=== PATIENT | female | born 1945 | race Caucasian/White ===

== ENCOUNTER 2018-08-17 08:58 | Outpatient (CLI) | payer MEDICARE ==
[2018-08-17 14:31] LABS: BASOPHILS % (AUTO) 0.8 %; EOSINOPHILS # (AUTO) 0.1 10^3/uL (0.0-0.7); EOSINOPHILS % (AUTO) 2.1 %; HGB - HEMOGLOBIN 13.1 g/dL (12.0-16.0); LYMPHOCYTES # (AUTO) 1.7 10^3/uL (1.5-3.5); LYMPHOCYTES % (AUTO) 35.4 %; MEAN CORPUSCULAR HEMOGLOBIN 32.5 pg (27.0-31.0); MEAN CORPUSCULAR HGB CONC 34.2 g/dL (32.0-36.0); MEAN CORPUSCULAR VOLUME 95.2 fL (81.0-99.0); MEAN PLATELET VOLUME 8.6 fL (7.9-10.8); MONOCYTES # (AUTO) 0.4 10^3/uL (0.0-1.0); MONOCYTES % (AUTO) 7.7 %; NEUTROPHILS # (AUTO) 2.6 10^3/uL (1.5-6.6); PLT - PLATELET COUNT 280 10^3/uL (130-450); RED BLOOD COUNT 4.04 10^6/uL (4.20-5.40); RED CELL DISTRIBUTION WIDTH 12.7 % (12.0-15.0); WHITE BLOOD COUNT 4.9 x10^3/uL (4.8-10.8)
[2018-08-17 14:59] LABS: ALBUMIN 3.9 g/dL (3.2-5.5); ALBUMIN/GLOBULIN RATIO 1.6 (1.0-2.2); ALKALINE PHOSPHATASE 66 IU/L (42-121); ALT ALANINE AMINOTRANSFERASE 41 IU/L (10-60); AST ASPARTATE AMINOTRANSFERASE 36 IU/L (10-42); BUN - BLOOD UREA NITROGEN 13 mg/dL (6-20); CALCIUM 9.2 mg/dL (8.5-10.3); CARBON DIOXIDE - CO2 25 mmol/L (21-32); CHLORIDE 105 mmol/L (101-111); CHOL/HDL RATIO 1.9 (<4.4); CHOLESTEROL 177 mg/dL; CREATININE 0.8 mg/dL (0.4-1.0); GFR - MDRD 71 (>89); GLUCOSE 99 mg/dL (70-100); HDL CHOLESTEROL 94 mg/dL; SODIUM 137 mmol/L (135-145); TOTAL PROTEIN 6.3 g/dL (6.7-8.2)
[2018-08-17 15:35] LABS: LDL CHOLESTEROL,DIRECT 71 mg/dL; LDLD/HDL RATIO 0.8 (<4.4)
== END 2018-08-17 08:59 | disposition home or self-care (01) ==
LOC: LAB.WCP 08:58
PROVIDERS: ATTEND Family Medicine
DX: D72.819 Decreased white blood cell count, unspecified (principal); I10 Essential (primary) hypertension; Z79.899 Other long term (current) drug therapy
CPT/HCPCS: 36415; 80053; 80061; 83721; 84443; 85025

== ENCOUNTER 2019-08-04 09:55 | Outpatient (CLI) | payer MEDICARE, OTHER ==
[2019-08-04 13:23] LABS: BASOPHILS % (AUTO) 0.8 %; EOSINOPHILS # (AUTO) 0.1 10^3/uL (0.0-0.7); EOSINOPHILS % (AUTO) 2.5 %; HGB - HEMOGLOBIN 13.8 g/dL (12.0-16.0); LYMPHOCYTES # (AUTO) 2.1 10^3/uL (1.5-3.5); LYMPHOCYTES % (AUTO) 42.1 %; MEAN CORPUSCULAR HEMOGLOBIN 31.5 pg (27.0-31.0); MEAN CORPUSCULAR HGB CONC 32.2 g/dL (32.0-36.0); MEAN CORPUSCULAR VOLUME 97.9 fL (81.0-99.0); MONOCYTES # (AUTO) 0.4 10^3/uL (0.0-1.0); MONOCYTES % (AUTO) 7.6 %; NEUTROPHILS # (AUTO) 2.3 10^3/uL (1.5-6.6); NEUTROPHILS % (AUTO) 46.8 %; PLT - PLATELET COUNT 329 10^3/uL (130-450); RED BLOOD COUNT 4.38 10^6/uL (4.20-5.40); RED CELL DISTRIBUTION WIDTH 12.6 % (12.0-15.0); WHITE BLOOD COUNT 4.9 x10^3/uL (4.8-10.8)
[2019-08-04 13:28] LABS: ALBUMIN 3.9 g/dL (3.2-5.5); ALBUMIN/GLOBULIN RATIO 1.2 (1.0-2.2); ALKALINE PHOSPHATASE 73 IU/L (42-121); ALT ALANINE AMINOTRANSFERASE 76 IU/L (10-60); AST ASPARTATE AMINOTRANSFERASE 64 IU/L (10-42); BILIRUBIN,TOTAL 0.7 mg/dL (0.2-1.0); BUN - BLOOD UREA NITROGEN 16 mg/dL (6-20); CALCIUM 9.7 mg/dL (8.5-10.3); CARBON DIOXIDE - CO2 29 mmol/L (21-32); CHLORIDE 108 mmol/L (101-111); CHOLESTEROL 199 mg/dL; CREATININE 0.8 mg/dL (0.4-1.0); GFR - MDRD 70 (>89); GLUCOSE 94 mg/dL (70-100); HDL CHOLESTEROL 102 mg/dL; SODIUM 141 mmol/L (135-145); TOTAL PROTEIN 7.1 g/dL (6.7-8.2)
[2019-08-05 12:57] LABS: HEPATITIS C ANTIBODY NON-REACTIVE (NON-REACTIVE)
== END 2019-08-04 23:59 | disposition home or self-care (01) ==
LOC: LAB.WCP 09:55
PROVIDERS: ATTEND Physician Assistant Medical
DX: I10 Essential (primary) hypertension (principal); Z11.59 Encounter for screening for other viral diseases
CPT/HCPCS: 36415; 80053; 80061; 83721; 85025; 86803

== ENCOUNTER 2020-12-18 09:14 | Outpatient (CLI) | payer MEDICARE, OTHER ==
[2020-12-18 09:50] LABS: BASOPHILS % (AUTO) 0.8 %; EOSINOPHILS # (AUTO) 0.1 10^3/uL (0.0-0.7); EOSINOPHILS % (AUTO) 1.7 %; HCT - HEMATOCRIT 45.8 % (37.0-47.0); HGB - HEMOGLOBIN 14.5 g/dL (12.0-16.0); LYMPHOCYTES # (AUTO) 1.9 10^3/uL (1.5-3.5); LYMPHOCYTES % (AUTO) 38.5 %; MEAN CORPUSCULAR HEMOGLOBIN 31.9 pg (27.0-31.0); MEAN CORPUSCULAR HGB CONC 31.7 g/dL (32.0-36.0); MEAN CORPUSCULAR VOLUME 100.9 fL (81.0-99.0); MEAN PLATELET VOLUME 9.6 fL (7.9-10.8); MONOCYTES # (AUTO) 0.3 10^3/uL (0.0-1.0); MONOCYTES % (AUTO) 6.9 %; NEUTROPHILS # (AUTO) 2.5 10^3/uL (1.5-6.6); NEUTROPHILS % (AUTO) 51.9 %; PLT - PLATELET COUNT 270 10^3/uL (130-450); RED BLOOD COUNT 4.54 10^6/uL (4.20-5.40); RED CELL DISTRIBUTION WIDTH 11.9 % (12.0-15.0); WHITE BLOOD COUNT 4.8 x10^3/uL (4.8-10.8)
[2020-12-18 10:08] LABS: ALBUMIN 4.1 g/dL (3.2-5.5); ALBUMIN/GLOBULIN RATIO 1.3 (1.0-2.2); ALKALINE PHOSPHATASE 84 IU/L (42-121); ALT ALANINE AMINOTRANSFERASE 117 IU/L (10-60); AST ASPARTATE AMINOTRANSFERASE 85 IU/L (10-42); BILIRUBIN,TOTAL 0.9 mg/dL (0.2-1.0); BUN - BLOOD UREA NITROGEN 17 mg/dL (6-20); CALCIUM 9.9 mg/dL (8.5-10.3); CARBON DIOXIDE - CO2 22 mmol/L (21-32); CHLORIDE 105 mmol/L (101-111); CHOL/HDL RATIO 2.3 (<4.4); CHOLESTEROL 210 mg/dL; CREATININE 0.9 mg/dL (0.4-1.0); GFR - MDRD 61 (>89); GLUCOSE 92 mg/dL (70-100); HDL CHOLESTEROL 92 mg/dL; LDL CHOLESTEROL,CALCULATED 110 mg/dL; LDL/HDL RATIO 1.2 (<4.4); POTASSIUM 4.4 mmol/L (3.5-5.0); SODIUM 135 mmol/L (135-145); TOTAL PROTEIN 7.3 g/dL (6.7-8.2); TRIGLYCERIDES 41 mg/dL; VLDL CHOLESTEROL 8 mg/dL
[2020-12-18 10:17] LABS: THYROID STIMULATING HORMONE 2.25 uIU/mL (0.34-5.60)
== END 2020-12-18 09:15 | disposition home or self-care (01) ==
LOC: LAB 09:14
PROVIDERS: ATTEND Physician Assistant Medical
DX: I10 Essential (primary) hypertension (principal); E66.9 Obesity, unspecified; J45.40 Moderate persistent asthma, uncomplicated; G47.30 Sleep apnea, unspecified
CPT/HCPCS: 36415; 80053; 80061; 83721; 84443; 85025

== ENCOUNTER 2020-12-21 10:21 | Outpatient (CLI) | payer MEDICARE, OTHER ==
[2020-12-22 13:52] LABS: HEPATITIS B SURFACE ANTIGEN NON-REACTIVE (NON-REACTIVE); HEPATITIS C ANTIBODY NON-REACTIVE (NON-REACTIVE)
== END 2020-12-21 23:59 | disposition home or self-care (01) ==
LOC: LAB.WCP 10:21
PROVIDERS: ATTEND Physician Assistant Medical
DX: R74.8 Abnormal levels of other serum enzymes (principal)
CPT/HCPCS: 36415; 86317; 86704; 86709; 86803; 87340

== ENCOUNTER 2021-01-11 08:16 | Outpatient (CLI) | payer MEDICARE, OTHER ==
--- NOTE | 2021-01-11 12:00 | Ultrasound Report ---
PROCEDURE: Abdomen Limited INDICATIONS: ELEVATED LIVER ENZYMES TECHNIQUE: Real-time focused scanning was performed of the abdomen, with image documentation. COMPARISON: None FINDINGS: The liver is mildly enlarged at 18.8 cm craniocaudad, with increased echotexture consisten t with diffuse fatty infiltration. The quality of visualization of the gallbladder is limited by body habitus and bowel gas but no definite acute disease is found involving the gallbladder. Common bile duct measures 3.0 mm, normal. Pancreas visualized appears normal but is very limited in quality of vi sualization. Right kidney shows mild hydronephrosis which persisted after voiding. No definite focus of obstruction is seen but the exact etiology of this finding is indeterminate. IMPRESSION: Hyperechoic liver echotexture consistent with prominent fatty infiltration. No focal liver lesions se en nor is there biliary distention. Mild hydronephrosis right kidney, etiology and chronicity uncertain. CT KUB may be warranted for furt her assessment. Reviewed by: Barrett Soto MD on 01/11/2021 11:59 AM PDT Approved by: Barrett Soto MD on 01/11/2021 11:59 AM PDT Station ID: [id number]
== END 2021-01-11 08:17 | disposition home or self-care (01) ==
LOC: DI 08:16
PROVIDERS: ATTEND Physician Assistant Medical
DX: N13.30 Unspecified hydronephrosis (principal)

== ENCOUNTER 2021-01-23 08:00 | Outpatient (CLI) | payer MEDICARE, OTHER ==
[2021-01-23 21:20] LABS: BACTERIAL VAGINOSIS DNA POSITIVE (NEGATIVE); CANDIDA GLABRATA DNA NEGATIVE (NEGATIVE); CANDIDA GROUP DNA POSITIVE (NEGATIVE); CANDIDA KRUSEI DNA NEGATIVE (NEGATIVE); TRICHOMONAS VAGINALIS DNA NEGATIVE (NEGATIVE)
== END 2021-01-23 23:59 | disposition home or self-care (01) ==
LOC: LAB.WC 08:00
PROVIDERS: ATTEND Obstetrics & Gynecology
DX: N89.8 Other specified noninflammatory disorders of vagina (principal)
CPT/HCPCS: 87661; 87801

== ENCOUNTER 2021-01-23 09:04 | Outpatient (CLI) | payer MEDICARE, OTHER ==
--- NOTE | 2021-01-23 10:36 | CT Report ---
PROCEDURE: Abdomen/Pelvis WO INDICATIONS: HYDRONEPHROSIS TECHNIQUE: Noncontrast 5 mm thick sections acquired from the diaphragms to the symphysis. 5 mm coronal and sagi ttal reformats were then performed. For radiation dose reduction, the following was used: automated exposure control, adjustment of mA and/or kV according to patient size. COMPARISON: Renal ultrasound dated 01/11/2021. FINDINGS: Image quality: Excellent. ABDOMEN: Lung bases: Lung bases are clear. Heart size is normal. Solid organs: Liver and spleen are normal in size. Gallbladder is unremarkable. Pancreas is normal in contours. No adrenal nodules. On the ultrasound report, there is mention of mild right hydroneph rosis of uncertain etiology. There is no hydronephrosis suspected. Instead, there are numerous bilate ral peripelvic renal cysts. No renal stones. Peritoneum and bowel: Unenhanced bowel loops demonstrate normal wall thickness and caliber. No free fluid or air. Nodes and vessels: No retroperitoneal or mesenteric adenopathy by size criteria. Aorta and inferior vena cava are normal in caliber. Miscellaneous: No ventral hernias. PELVIS: Genitourinary: Bladder wall thickness is normal. Bladder is decompressed. Miscellaneous: No inguinal hernias or adenopathy. Bones: No suspicious bony lesions. No vertebral body compression fractures. Lumbar degenerative ch isaias with canal stenosis at L4-L5. IMPRESSION: 1. Multiple bilateral renal peripelvic cysts. No hydronephrosis identified. 2. No evidence of acute abdominal process. 3. Lumbar degenerative change with canal stenosis at L4-L5. Reviewed by: Tanner Foster MD on 01/23/2021 10:34 AM PDT Approved by: Tanner Foster MD on 01/23/2021 10:34 AM PDT Station ID: [id number]
== END 2021-01-23 09:05 | disposition home or self-care (01) ==
LOC: DI 09:04
PROVIDERS: ATTEND Physician Assistant Medical
DX: N28.1 Cyst of kidney, acquired (principal); M47.816 Spondylosis without myelopathy or radiculopathy, lumbar region; M51.06 Intervertebral disc disorders with myelopathy, lumbar region; M51.16 Intervertebral disc disorders with radiculopathy, lumbar region; M48.061 Spinal stenosis, lumbar region without neurogenic claudication; N89.8 Other specified noninflammatory disorders of vagina
CPT/HCPCS: 87661; 87801

== ENCOUNTER 2021-04-05 17:41 | Outpatient (CLI) | payer MEDICARE, OTHER ==
--- NOTE | 2021-04-07 17:42 | Ultrasound Report ---
PROCEDURE: Pelvic w/Transvaginal INDICATIONS: CERVICAL POLYP TECHNIQUE: Real-time scanning was performed of the pelvic organs, with image documentation. Additional endovagi nal scanning was necessary due to incomplete visualization of the adnexal and endometrial structures by transabdominal scanning. COMPARISON: Pelvic ultrasound, 05/15/2007. FINDINGS: No pathologic free abdominal or pelvic fluid. Uterus: Uterus is anteverted measuring 6.1 x 1.9 x 3.3 cm with an estimated volume of 19.8 cc The e ndometrium measures 5.3 mm in combined thickness. There are nabothian cysts. No polyps seen. Ovaries: Ovaries are not identified on ultrasound. IMPRESSION: 1. Limited examination due to the patient's body habitus. 2. Endometrium is mildly thickened measuring 5.3 mm for a postmenopausal woman. Recommend gynecologic al follow-up. 3. There are nabothian cysts in cervix. No cervical polyp is identified on this ultrasound. 4. Ovaries are not visualized. Reviewed by: Dixie Langston MD on 04/07/2021 5:41 PM PDT Approved by: Dixie Langston MD on 04/07/2021 5:41 PM PDT Station ID: [id number]
== END 2021-04-05 17:42 | disposition home or self-care (01) ==
LOC: DI 17:41
PROVIDERS: ATTEND Obstetrics & Gynecology
DX: R93.89 Abnormal findings on diagnostic imaging of other specified body structures (principal); N88.8 Other specified noninflammatory disorders of cervix uteri

== ENCOUNTER 2021-05-15 10:06 | Outpatient (CLI) | payer MEDICARE, OTHER ==
--- NOTE | 2021-05-15 10:39 | SLEEP CARE CONSULTATION ---
Information from patient questionnaire entered by Kelly Alvarado. I have reviewed and concur with the information entered by Kelly Alvarado. This document represents the service I personally performed and the decisions made by , Aileen Pineda ARNP. History of Present Illness Service Date and Time: 05/15/2021 1006 Previous diagnosis: Severe, Obstructive Sleep Apnea-Hypopnea Syndrome AHI: 57.4 (in 2017) Reason for follow up: annual (last seen 03/2019) Equipment type: CPAP Equipment obtained from: [facility] (getting supplies as needed) Mask style: Nasal Mask brand: Respironics (Dreamwear) Backup mask available: Yes (old mask) Last cushion change: 1 month Prior sleep studies: Yes Year and Where: 2017 - [facility] HPI additional information: BRIT LYNN was diagnosed to have severe, AHI 57.4, obstructive sleep apnea-hypopnea syndrome and returned today for CPAP therapy annual follow-up. CPAP Compliance Data - Data Reviewed with Patient Average duration of nightly device use: 8 hrs 38 mins Compliance rate %: 77.2 Current pressure setting (cmH2O): 8-13 Humidity settin Heated hose settin Average residual AHI: 1.5 Average large leak: 56 mins 59 secs Subjective Patient concerns: denies: aerophagia, mask discomfort, air blowing in eyes, mask leak noise, condensation in mask/hose, nasal congestion, dry mouth, nose, throat, epistaxis, other Observed to snore while using device: No Current pressure setting perceived as: comfortable On therapy, patient: reports: sleeping better, awakening more refreshed, being more awake and alert during the day, more rested overall. denies: drowsiness while driving Current Pinch Sleepiness Scale score: 2 Allergies and Home Medications Home medication list reviewed: Yes (no changes) Review of Systems Review of systems same as previous: Yes (no changes) Physical Exam Heart Rate: 56 O2 Saturation: 97 Height: 5 ft 4 in Weight: 258 lb Body Mass Index: 44.2 BMI Classification: Morbidly Obese Impression and Plan 1. Obstructive Sleep Apnea-Hypopnea Syndrome, severe, with good treatment compliance and good apnea control. On CPAP therapy, the patient has better sleep quality and is more rested overall. Patient is very satisfied with current treatment and pressure setting is comfortable. Patient was encouraged to try to lose weight. Currently patients BMI is 44.2. Obesity increases the risk of ap juan carlos, CPAP pressure requirements and overall health risks especially cardiovascular and diabetes. Thus patient is advised to lose weight. Patient's apnea severity and rationale for treatment to reduce apnea, improve sleep quality and reduce cardiovascular and cerebrovascular events was reviewed. * Continue auto CPAP pressure at 8-13 cmH2O * Notify me if snoring with mask or feeling that the pressure is too much or too little * Attempt to lose weight * Call this office if any problems using CPAP * Return for follow up in 1 year, or sooner if concerns arise Counseling Topics: Spare mask, Weight loss health impact Visit Type: In Office Time Spent with Patient (minutes): 18 Provider Statement: I spent 100% of the Face to Face Visit with the patient with greater than 50% spent counseling the patient and coordination of care.
== END 2021-05-15 10:07 | disposition home or self-care (01) ==
LOC: SC 10:06
PROVIDERS: ATTEND Nurse Practitioner Family
DX: G47.33 Obstructive sleep apnea (adult) (pediatric) (principal); E66.01 Morbid (severe) obesity due to excess calories; Z68.41 Body mass index [BMI] 40.0-44.9, adult
CPT/HCPCS: 99212; G0463

== ENCOUNTER 2021-05-22 14:38 | Outpatient (CLI) | payer MEDICARE, OTHER ==
[2021-05-22 14:55] LABS: BASOPHILS # (AUTO) 0.1 10^3/uL (0.0-0.1); BASOPHILS % (AUTO) 0.8 %; EOSINOPHILS # (AUTO) 0.1 10^3/uL (0.0-0.7); EOSINOPHILS % (AUTO) 1.9 %; HCT - HEMATOCRIT 41.8 % (37.0-47.0); HGB - HEMOGLOBIN 13.4 g/dL (12.0-16.0); LYMPHOCYTES # (AUTO) 2.2 10^3/uL (1.5-3.5); LYMPHOCYTES % (AUTO) 34.3 %; MEAN CORPUSCULAR HEMOGLOBIN 32.1 pg (27.0-31.0); MEAN CORPUSCULAR HGB CONC 32.1 g/dL (32.0-36.0); MEAN PLATELET VOLUME 9.7 fL (7.9-10.8); MONOCYTES # (AUTO) 0.6 10^3/uL (0.0-1.0); MONOCYTES % (AUTO) 8.7 %; NEUTROPHILS # (AUTO) 3.4 10^3/uL (1.5-6.6); NEUTROPHILS % (AUTO) 54.1 %; PLT - PLATELET COUNT 270 10^3/uL (130-450); RED BLOOD COUNT 4.18 10^6/uL (4.20-5.40); RED CELL DISTRIBUTION WIDTH 12.3 % (12.0-15.0); WHITE BLOOD COUNT 6.3 x10^3/uL (4.8-10.8)
[2021-05-22 15:01] LABS: CALCIUM 9.8 mg/dL (8.5-10.3); CREATININE 0.9 mg/dL (0.4-1.0); POTASSIUM 4.5 mmol/L (3.5-5.0)
== END 2021-05-22 14:39 | disposition home or self-care (01) ==
LOC: LAB 14:38
PROVIDERS: ATTEND Obstetrics & Gynecology
DX: Z01.818 Encounter for other preprocedural examination (principal); R93.89 Abnormal findings on diagnostic imaging of other specified body structures
CPT/HCPCS: 36415; 80048; 85025; 93005

== ENCOUNTER 2021-05-23 06:16 | Day surgery (SDC) | payer MEDICARE, OTHER ==
[~2021-05-23 06:16] MED LIST: ACETAMINOPHEN 1,000 MG/100 ML 100 ML IV ONE; CEFAZOLIN SODIUM IN 0.9 % NACL 2 GM/100 ML BAG IV ONE; CELECOXIB 100 MG CAPSULE PO ONE; GABAPENTIN 400 MG CAPSULE ONE
[2021-05-23] MEDS ORDERED: LACTATED RINGERS 1,000 ML IV ONE ×3 (06:27→09:51)
[2021-05-23] MEDS ORDERED: fentaNYL 100 MCG/2 ML VIAL ONE (06:58)
[2021-05-23] MEDS ORDERED: MIDAZOLAM 2 MG/2 ML VIAL ONE (06:58)
[2021-05-23] MEDS ORDERED: LIDOCAINE-MPF 2% 5 ML VIAL ONE (06:59)
[2021-05-23] MEDS ORDERED: PROPOFOL 200 MG/20 ML VIAL IVP ONE (06:59)
[2021-05-23] MEDS ORDERED: HYDROmorphone 0.5 MG/0.5 ML SYRINGE IVP PRN (07:19)
[2021-05-23] MEDS ORDERED: ATROPINE ABBOJECT 1 MG/10 ML SYRINGE IVP PRN (07:19)
[2021-05-23] MEDS ORDERED: ePHEDrine 50 MG/ML VIAL IVP PRN (07:19)
[2021-05-23] MEDS ORDERED: MORPHINE 2 MG/ML CARPUJECT IVP PRN (07:19)
[2021-05-23] MEDS ORDERED: METOCLOPRAMIDE 10 MG/2 ML VIAL IVP PRN (07:19)
[2021-05-23] MEDS ORDERED: fentaNYL 100 MCG/2 ML VIAL IVP PRN (07:19)
[2021-05-23] MEDS ORDERED: NALOXONE 0.4 MG/ML VIAL IVP PRN (07:19)
--- NOTE | 2021-05-23 07:19 | ANESTHESIA ---
Pre-Anesthesia VS, & Labs - Diagnosis thickened endometrium - Procedure hysteroscopy, D&C Vital Signs: Temp Pulse Resp BP Pulse Ox 36.2 C L 66 14 120/78 99 05/23/21 06:31 05/23/21 06:31 05/23/21 06:31 05/23/21 06:31 05/23/21 06:31 Height: 5 ft 4 in Weight (kg): 118 kg Body Mass Index: 44.6 BMI Classification: Morbidly Obese - NPO >8 hours - Is Patient ?: No - Lab Results Current Lab Results: Laboratory Tests 05/23/21 06:51: POC Whole Bld Glucose 99 Home Medications and Allergies Home Medications: Ambulatory Orders Albuterol Sulfate [Proair Hfa Inhaler] 1 - 2 puffs INH Q4H PRN 05/22/21 Fluticasone/Salmeterol [Advair 100-50 Diskus] 1 each IH DAILY 05/22/21 Montelukast Sodium 10 mg PO DAILY 05/22/21 lisinopriL [Zestril] 5 mg PO DAILY 05/22/21 Albuterol Sulfate [Proair Hfa Inhaler] 1 - 2 puffs INH Q4H PRN 05/22/21 Fluticasone/Salmeterol [Advair 100-50 Diskus] 1 each IH DAILY 05/22/21 Montelukast Sodium 10 mg PO DAILY 05/22/21 lisinopriL [Zestril] 5 mg PO DAILY 05/22/21 Allergies/Adverse Reactions: Allergies Allergy/AdvReac Type Severity Reaction Status Date / Time No Known Drug Allergies Allergy Verified 05/22/21 10:00 Anes History & Medical History - Anesthetic History Anesthesia Complications: reports: No previous complications Family history of Anesthesia Complications: Denies Family history of Malignant Hyperthermia: Denies - Medical History Cardiovascular: reports: Hypertension Pulmonary: reports: Asthma, Sleep apnea, CPAP use Gastrointestinal: reports: None Urinary: reports: None Musculoskeletal: reports: Osteoarthritis Endocrine/Autoimmune: reports: None Skin: reports: None - Surgical History General: reports: Colonoscopy Eyes Ears Nose Throat (EENT): reports: Other Gynecologic: reports: Tubal ligation Orthopedic: reports: Hip replacement Exam General: Alert, Oriented x3, Cooperative Dental: WNL Mouth Openin Fingerbreadth Neck Mobility: Normal Mallampati classification: II Thyromental Distance: 4-6 cm Respiratory: Lungs clear Cardiovascular: Regular rate Plan Anesthesia Type: General Consent for Procedure(s) Verified and Reviewed: Yes Code Status: Attempt Resuscitation ASA classification: 3-Severe systemic disease Is this case an emergency?: No
[2021-05-23] MEDS ORDERED: BUPIVACAINE 0.5%-EPI 1:200000 PF 30 ML VIAL ONE (07:21)
[2021-05-23] MEDS ORDERED: SILVER NITRATE APPLICATOR TOP ONE (07:22)
[2021-05-23] MEDS ORDERED: DEXAMETHASONE 4 MG/ML VIAL ONE (07:58)
[2021-05-23] MEDS ORDERED: VASOPRESSIN 20 UNIT/ML VIAL ONE (07:59)
[2021-05-23] MEDS ORDERED: LACTATED RINGERS 1,000 ML IV SCH (08:00)
[2021-05-23] MEDS ORDERED: BUPIVACAINE 0.5%-EPI 1:200000 PF 30 ML VIAL SUBQ ONE (08:16)
[2021-05-23] MEDS ORDERED: GLYCOPYRROLATE 1 MG/5 ML VIAL ONE (08:22)
--- NOTE | 2021-05-23 08:55 | OPERATIVE REPORT ---
Operative Report - General Procedure Date: 05/23/21 Planned Procedure: Hysteroscopy, Dilation and curettage, cervical polypectomy Pre-Op Diagnosis: Thickened endometrium Procedure Performed: Hysteroscopy, Dilation and curettage, vaginal cystectomy Post Op Diagnosis: Thickened endometrium, cervical polyp, vaginal cyst - Procedure Note Primary Surgeon: Yossi Nino MD Secondary Surgeon: Valentina Cooney MD Anesthesia Provider: Wellington Ramsey CRNA Anesthesia Technique: General mask Pathology: ThinPrep Pap smear Uterine contents Vaginal cyst IV Fluids (mL): 600 Estimated Blood Loss (mL): 15 Findings: Vaginal cyst, cervical polyp, mildly thickened endometrial lining. Patient's right tubal ostia appeared nonpatent. Left os appeared patent. Complications: None - Other Other Information/Narrative: Patient was taken to the procedure room and placed in dorsal lithotomy position.Manual exam was performed showing a mid position uterus, at that time a vaginal cyst was noted. [place] speculum was palced in the vagina and the cervix was visualized and a Pap smear was collected. The surgical area was then prepped with Hibiclens. The anterior lip the cervix was grasped with a single-tooth tenaculum. A paracervical block was then performed using one half-percent bupivacaine with epinephrine.The cervix was noted to be nonstenotic and allowed the easy passage of dilators. Hysteroscope was then used to hydrodilate using normal saline distention media. Hysteroscope was advanced without difficulty using hydrodistention. Cervical canal was noted to have a cervical polyp and the uterine lining was noted to be mildly thickened. The right tubal ostia appeared to be nonpatent. The left tubal ostia appeared patent. Using the [employer] sure resection device, the thickened endometrium was sampled and cleared of any larger areas. The cervical polyp was also removed. The hysteroscope was then removed. Tenaculum was then removed from the cervix noted to be hemostatic. The vaginal polyp appeared to be approximately 1 cm and pedunculated. Using 2 mL of the local anesthetic, the area was numbed, and grasped with pickups. Using a 15 blade scalpel, the cyst was removed. The area was repaired with a running suture of 2-0 Vicryl. The area appeared hemostatic, and all instruments were removed. Sponge and needle counts were correct x2. The patient was taken to the PACU in stable condition. Fluid deficit was 180 mL.
[2021-05-23] MEDS: KETOROLAC 15 MG/ML VIAL IVP ONE ×2 (09:00→09:40)
[2021-05-23] MEDS: ONDANSETRON 4 MG/2 ML VIAL IVP PRN ×2 (09:05→09:16)
[2021-05-23] MEDS ORDERED: ONDANSETRON 4 MG/2 ML VIAL ONE (09:19)
[2021-05-23] MEDS ORDERED: KETOROLAC 15 MG/ML VIAL ONE (09:37)
[2021-05-23 10:38] VITALS: BP 142/80
--- NOTE | 2021-05-23 14:16 | ANESTHESIA POST OP EVALUATION ---
Anesthesia Post Eval - Post Anesthesia Eval Vitals: Last Vital Signs Temp 36 C L 05/23/21 10:20 Pulse 68 05/23/21 10:20 Resp 14 05/23/21 10:20 BP 142/80 H 05/23/21 10:20 Pulse Ox 99 05/23/21 10:20 CV Function Including HR & BP: Stable Pain Control: Satisfactory Nausea & Vomiting: Negative Mental Status: Baseline Respiratory Status: Airway Patent Hydration Status: Satisfactory Anesthesia Complications: None
== END 2021-05-23 06:17 | disposition home or self-care (01) ==
LOC: SDS 06:16
PROVIDERS: ATTEND Obstetrics & Gynecology
PROC: 0UDB8ZX Extraction of Endometrium, Via Natural or Artificial Opening Endoscopic, Diagnostic (ICD-10-PCS; 2021-05-23)
PROC: 0UBG7ZZ Excision of Vagina, Via Natural or Artificial Opening (ICD-10-PCS; 2021-05-23)
PROC: 0UBC8ZZ Excision of Cervix, Via Natural or Artificial Opening Endoscopic (ICD-10-PCS; principal; 2021-05-23 07:30)
DX: R93.89 Abnormal findings on diagnostic imaging of other specified body structures (principal); N84.1 Polyp of cervix uteri; N89.8 Other specified noninflammatory disorders of vagina; Z87.891 Personal history of nicotine dependence; E66.01 Morbid (severe) obesity due to excess calories; Z68.41 Body mass index [BMI] 40.0-44.9, adult; G47.30 Sleep apnea, unspecified
CPT/HCPCS: 57135; 58558; A9270; J0131; J0690; J7120

== ENCOUNTER 2021-06-12 07:03 | Outpatient (CLI) | payer MEDICARE, OTHER | END 2021-06-12 07:04 | disposition EMS.NT | LOC: EMS 07:03 | DX: R42 Dizziness and giddiness (principal); R11.2 Nausea with vomiting, unspecified ==

== ENCOUNTER 2021-06-12 07:38 | Emergency (ER) | payer MEDICARE, OTHER ==
--- NOTE | 2021-06-12 08:25 | ED Physician Documentation ---
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 She knew better than to get in the car and drive so she sat in her vehicle and felt much better if she closed her eyes waited for someone else to arrive. They suggested she come to the hospital even though she wanted to just return home. They called for an ambulance but she refused transport and her daughter drove her here. She does not know if her heart was racing at the time and denied any chest pain but now said that her chest is feeling a little heavy. She denies headache or numbness or tingling anywhere. She is ambulatory but just feels off when she is trying to walk. Interestingly she wears hearing aids and has not used them for a year but put them in today and on her drive to work they just "felt too loud" she ended up taking them out. She denies any recent illness. No history of DVT. She does take lisinopril for blood pressure control but denies other medical problems. Review of Systems Constitutional: denies: Fever, Chills, Myalgias Eyes: denies: Loss of vision Ears: reports: Other (hearing aids today after no use for 1 year). denies: Tinnitus/ringing Nose: denies: Rhinorrhea / runny nose, Congestion Throat: denies: Sore throat Cardiac: denies: Chest pain / pressure, Palpitations Respiratory: denies: Dyspnea, Cough GI: reports: Nausea, Vomiting : denies: Dysuria, Frequency, Hesitancy Skin: denies: Rash Neurologic: denies: Focal weakness, Numbness, Difficulty speaking, Syncope, Headache Endocrine: reports: Other (no h/o DM) PD PAST MEDICAL HISTORY - Past Medical History Past Medical History: Yes Cardiovascular: Hypertension Respiratory: Asthma Neuro: None Endocrine/Autoimmune: None GI: None FISHERIES INSPECTOR: None HEENT: None Psych: None Musculoskeletal: None Derm: None - Past Surgical History Past Surgical History: Yes Ortho: Hip replacement /FISHERIES INSPECTOR: Dilation and currettage, Tubal ligation - Present Medications Home Medications: Ambulatory Orders Medication Instructions Recorded Confirmed Albuterol Sulfate [Proair Hfa 1 - 2 puffs INH Q4H PRN 05/22/21 06/12/21 Inhaler] Fluticasone/Salmeterol [Advair 1 each IH DAILY 05/22/21 06/12/21 100-50 Diskus] Montelukast Sodium 5 mg PO DAILY 05/22/21 06/12/21 lisinopriL [Zestril] 5 mg PO DAILY 05/22/21 06/12/21 Meclizine [Antivert] 25 mg PO Q6H PRN #20 tablet 06/12/21 - Allergies Allergies/Adverse Reactions: Allergies Allergy/AdvReac Type Severity Reaction Status Date / Time oxycodone [From Percocet] AdvReac Emesis Verified 06/12/21 07:47 - Social History Does the pt smoke?: No Smoking Status: Former smoker Does the pt drink ETOH?: Yes Does the pt have substance abuse?: No - Immunizations Immunizations are current?: Yes PD ED PE NORMAL - Vitals Vital signs reviewed: Yes - General General: Alert and oriented X 3, Other - HEENT HEENT: Atraumatic, PERRL, EOMI, Moist mucous membranes, Pharynx benign, Other (No cerumen in ears) - Neck Neck: Supple, no meningeal sign, No JVD, No bruit - Cardiac Cardiac: RRR, No murmur - Respiratory Respiratory: No respiratory distress, Clear bilaterally - Abdomen Abdomen: Normal bowel sounds, Soft, Non tender, Non distended - Derm Derm: Normal color, Warm and dry, No rash - Extremities Extremities: No edema - Neuro Neuro: Alert and oriented X 3, rn circulating 2-12 intact, No motor deficit, No sensory deficit, Normal speech - Psych Psych: Normal mood Results - Vitals Vitals: Vital Signs - 24 hr 06/12/21 06/12/21 06/12/21 07:48 08:16 10:42 Temperature 36.2 C L Heart Rate 63 62 53 L Respiratory 18 14 12 Rate Blood Pressure 151/90 H 141/73 H 131/90 H O2 Saturation 99 100 06/12/21 06/12/21 06/12/21 12:21 14:52 16:23 Temperature 36.5 C 36.1 C L Heart Rate 74 58 L 77 Respiratory 15 16 Rate Blood Pressure 128/65 122/65 155/82 H O2 Saturation 100 97 100 06/12/21 18:08 Temperature Heart Rate 57 L Respiratory 18 Rate Blood Pressure 159/90 H O2 Saturation 96 Oxygen O2 Source Room air - EKG (time done) 0846 Rate: Rate (enter#) (56) Rhythm: Sinus bradycardia. No: Atrial fibrillation Other comments: Other comments (some artifat; no acute changes) - Labs Labs: Laboratory Tests 06/12/21 06/12/21 06/12/21 08:10 08:10 08:10 WBC 4.7 L RBC 4.34 Hgb 13.9 Hct 42.6 MCV 98.2 MCH 32.0 H MCHC 32.6 RDW 12.0 Plt Count 279 MPV 9.8 Neut # (Auto) 2.5 Lymph # (Auto) 1.8 [place] # (Auto) 0.3 Eos # (Auto) 0.1 Baso # (Auto) 0.1 Absolute Nucleated RBC 0.00 Nucleated RBC % 0.0 Sodium 140 Potassium 3.8 Chloride 106 Carbon Dioxide 25 Anion Gap 9.0 BUN 13 Creatinine 0.9 Estimated GFR (MDRD) 61 L Glucose 143 H Calcium 9.4 Troponin I High Sens 2.9 Urine Color Urine Clarity Urine pH Ur Specific [place] Urine Protein Urine Glucose (UA) Urine Ketones Urine Occult Blood Urine Nitrite Urine Bilirubin Urine Urobilinogen Ur Leukocyte Esterase Ur Microscopic Review Urine Culture Comments 06/12/21 12:30 WBC RBC Hgb Hct MCV MCH MCHC RDW Plt Count MPV Neut # (Auto) Lymph # (Auto) [place] # (Auto) Eos # (Auto) Baso # (Auto) Absolute Nucleated RBC Nucleated RBC % Sodium Potassium Chloride Carbon Dioxide Anion Gap BUN Creatinine Estimated GFR (MDRD) Glucose Calcium Troponin I High Sens Urine Color YELLOW Urine Clarity CLEAR Urine pH 5.5 Ur Specific [place] 1.015 Urine Protein NEGATIVE Urine Glucose (UA) NEGATIVE Urine Ketones NEGATIVE Urine Occult Blood NEGATIVE Urine Nitrite NEGATIVE Urine Bilirubin NEGATIVE Urine Urobilinogen 0.2 (NORMAL) Ur Leukocyte Esterase NEGATIVE Ur Microscopic Review NOT INDICATED Urine Culture Comments NOT INDICATED - Rads (name of study) CTA head/neck Radiology: See rad report, Other (Neg) MRI/MRA brain and neck Radiology: See rad report, Other (Neg) PD MEDICAL DECISION MAKING - ED course ED course: 0835: Labs and CT head and neck have been ordered. I was just informed that the CT is down for routine maintenance potentially for couple of hours. At this point my suspicion for stroke is low and trying to transfer the patient somewhere for CT would not be any faster than waiting for our CT to come up. 1739: Labs are unremarkable. She is in a sinus rhythm. When I went in to evaluate the patient following the CT scan she had had Antivert and was still feeling dizzy with any movement and slightly nauseous. At that time I elected to order MRI MRA because it was good to be available today. She patiently waited for those results and by the time we had those results she was feeling back to normal. MRI MRA was negative for any acute findings. Did give her a note to be off work until Thursday in case she has any further episodes. We will give her a prescription for Antivert to use if needed. She is also can avoid the hearing aids because she cannot help but wonder if something about that set off this episode. Departure - Departure Disposition: Home, Self Care Clinical Impression: Dizziness Condition: Good Instructions: Meclizine, ED Vertigo Unspecified Follow-Up: Sultana Roe PA-C [Primary Care Provider] - Prescriptions: Meclizine [Antivert] 25 mg PO Q6H PRN #20 tablet PRN Reason: Dizziness Comments: Take the Antivert as prescribed if needed for dizziness. A prescription has been sent to [facility] in [place]. Keep yourself well-hydrated. Avoid use of the hearing aids. Follow-up with your primary doctor as needed. Forms: Activity restrictions Discharge Date/Time: 06/12/21 18:09
[2021-06-12] MEDS ORDERED: ONDANSETRON 4 MG/2 ML VIAL IVP STA (08:26)
[2021-06-12] MEDS ORDERED: MECLIZINE 12.5 MG TABLET PO STA (08:26)
[2021-06-12 08:32] LABS: BASOPHILS # (AUTO) 0.1 10^3/uL (0.0-0.1); BASOPHILS % (AUTO) 1.1 %; EOSINOPHILS # (AUTO) 0.1 10^3/uL (0.0-0.7); EOSINOPHILS % (AUTO) 1.9 %; HCT - HEMATOCRIT 42.6 % (37.0-47.0); HGB - HEMOGLOBIN 13.9 g/dL (12.0-16.0); LYMPHOCYTES # (AUTO) 1.8 10^3/uL (1.5-3.5); MEAN CORPUSCULAR HGB CONC 32.6 g/dL (32.0-36.0); MEAN CORPUSCULAR VOLUME 98.2 fL (81.0-99.0); MEAN PLATELET VOLUME 9.8 fL (7.9-10.8); MONOCYTES # (AUTO) 0.3 10^3/uL (0.0-1.0); MONOCYTES % (AUTO) 6.8 %; NEUTROPHILS # (AUTO) 2.5 10^3/uL (1.5-6.6); PLT - PLATELET COUNT 279 10^3/uL (130-450); RED BLOOD COUNT 4.34 10^6/uL (4.20-5.40); WHITE BLOOD COUNT 4.7 x10^3/uL (4.8-10.8)
[2021-06-12 08:41] LABS: CALCIUM 9.4 mg/dL (8.5-10.3); CREATININE 0.9 mg/dL (0.4-1.0); POTASSIUM 3.8 mmol/L (3.5-5.0)
--- NOTE | 2021-06-12 08:52 | XRAY Report ---
PROCEDURE: Chest 1 View X-Ray INDICATIONS: chest pain TECHNIQUE: One view of the chest was acquired. COMPARISON: None FINDINGS: Surgical changes and devices: None. Lungs and pleura: No pleural effusions or pneumothorax. Lungs are clear. Mediastinum: Mediastinal contours appear normal. Mild cardiomegaly. Bones and chest wall: No suspicious bony lesions. Overlying soft tissues appear unremarkable. IMPRESSION: Mild cardiomegaly. No evidence of acute pulmonary process. Reviewed by: Tanner Foster MD on 06/12/2021 8:50 AM PDT Approved by: Tanner Foster MD on 06/12/2021 8:50 AM PDT Station ID: [id number]
[2021-06-12] MEDS ORDERED: IOPAMIDOL-300 100 ML VIAL ONE (09:26)
[2021-06-12] MEDS ORDERED: IOPAMIDOL-300 100 ML VIAL IVP ONE (10:14)
--- NOTE | 2021-06-12 10:26 | CT Report ---
PROCEDURE: ANGIO NECK W INDICATIONS: L sided facial droop, L neck pain CONTRAST: IV CONTRAST: Isovue 300 ml: 80 PO CONTRAST: *NO PO CONTRAST TECHNIQUE: After the administration of intravenous contrast, 1.5 mm axial sections acquired from the aortic arch to the [place]. Coronal 3-D maximum intensity projection (MIP) and/or volume rendering ref ormats were then performed. For radiation dose reduction, the following was used: automated exposur e control, adjustment of mA and/or kV according to patient size. COMPARISON: Relation is made with the accompanying head CT angiogram, 06/12/2021. FINDINGS: Image quality: Excellent. Carotid system: The great vessels demonstrate a conventional anatomy as they arise from the aortic a rch. The origins of the common carotid arteries appear patent. The common carotid arteries demonstr ate normal calibers and courses. The bifurcation regions appear normal bilaterally. The internal ca rotid arteries demonstrate normal caliber and course. Posterior circulation: The origins of the vertebral arteries appear patent. The more superior porti ons of the vertebral arteries demonstrate normal course and caliber. They join to form a normal appe aring basilar artery. Soft tissues: Visualized neck soft tissues demonstrate no suspicious abnormalities. The thyroid dem onstrates normal size. There is an apparent right thyroid cyst seen that measures 1 cm. Bones: No suspicious bony lesions. Visualized cervical spine appears normally aligned. Moderate t o prominent cervical spine degenerative changes are seen. IMPRESSION: No hemodynamically significant stenosis can be seen within the arteries of the neck. Moderate to prominent cervical spine degenerative changes are seen. The estimate of stenosis included in the report of the imaging study was calculated using the NASCET method Reviewed by: Stan Sims MD on 06/12/2021 9:25 AM TAYLOR Approved by: Stan Sims MD on 06/12/2021 9:25 AM T[place]OR Station ID: [id number]
--- NOTE | 2021-06-12 10:27 | CT Report ---
PROCEDURE: ANGIO HEAD W/WO INDICATIONS: L sided facial droop CONTRAST: IV CONTRAST: Isovue 300 ml: 80 PO CONTRAST: *NO PO CONTRAST TECHNIQUE: Precontrast 4.5 mm thick angled axial sections acquired from the foramen magnum to the vertex. Afte r the administration of intravenous contrast, 1 mm thick sections acquired through the [place] of [place] is. Postcontrast 4.5 mm thick sections then re-acquired from the foramen magnum to the vertex. 3-di mensional abcbkqr-yffsjivsu-pfqyhreogm (MIP) and/or volume rendering reformats were acquired of the c entral intracranial vasculature. For radiation dose reduction, the following was used: automated ex posure control, adjustment of mA and/or kV according to patient size. COMPARISON: Correlation is made with the accompanying neck CT angiogram, 06/12/2021. FINDINGS: Image quality: Excellent. Anterior circulation: Intracranial internal carotid arteries are normal in size and flow. The flow within the paired anterior cerebral arteries is normal and symmetric. The flow within the middle cer ebral arteries is normal and symmetric. The anterior communicating artery is seen. No aneurysms are seen. Posterior circulation: Visualized portions of the vertebral arteries demonstrate normal caliber, and join to form a normal appearing basilar artery. Flow within the posterior cerebral arteries is norm al and symmetric. No aneurysms are seen. CSF spaces: Ventricles are normal in size and shape. Basal cisterns are patent. No extra-axial flu id collections. Brain: No midline shift. No intracranial bleeds or masses. Kennedy-white matter interface appears int act. Skull and face: Calvarium and facial bones appear intact, without suspicious lesions. Sinuses: Visualized sinuses and mastoids are clear. IMPRESSION: No intracranial hemorrhage is seen. No significant intracranial abnormality is seen. No significant intracranial arterial abnormalities are seen. If there is strong clinical concern for a stroke, please consider a dedicated brain MRI for further e valuation (assuming that there is no contraindication to MRI). Reviewed by: Stan Sims MD on 06/12/2021 9:26 AM [facility] Approved by: Stan Sims MD on 06/12/2021 9:26 AM [facility] Station ID: [id number]
[2021-06-12 12:43] LABS: BILIRUBIN,URINE NEGATIVE (NEGATIVE); GLUCOSE, URINE (UA) NEGATIVE (NEGATIVE); KETONES,URINE (UA) NEGATIVE (NEGATIVE); LEUKOCYTE ESTERASE, URINE NEGATIVE (NEGATIVE); NITRITE,URINE NEGATIVE (NEGATIVE); OCCULT BLOOD,URINE NEGATIVE (NEGATIVE); PH,URINE 5.5 PH (5.0-7.5); PROTEIN,URINE NEGATIVE (NEGATIVE); UROBILINOGEN,URINE 0.2 (NORMAL) E.U./dL (NORMAL)
[2021-06-12 12:48] LABS: CLARITY,URINE CLEAR (CLEAR)
--- NOTE | 2021-06-12 16:53 | MRI Report ---
PROCEDURE: Angio Brain W/O (MRA) INDICATIONS: dizzy TECHNIQUE: Noncontrast axial 3-D pqxt-wi-bbxmic MR angiogram, with 3-dimensional maximum intensity projection (M IP) reformats of the internal carotid arteries and posterior circulation then performed. COMPARISON: Correlation is made with the prior head and neck CT angiogram examinations, 06/12/2021. C orrelation is also made with the accompanying brain MRI examination, 06/12/2021. FINDINGS: Image quality: Excellent. Anterior circulation: Intracranial internal carotid arteries demonstrate normal size and intralumina l flow signal. The flow within the paired anterior cerebral arteries is normal and symmetric. The f low within the middle cerebral arteries is normal and symmetric. The anterior communicating artery i s seen. No stenoses, occlusions, or aneurysms. Posterior circulation: Visualized portions of the vertebral arteries demonstrate normal caliber, and join to form a normal appearing basilar artery. The flow within the posterior cerebral arteries is normal and symmetric. No stenoses, occlusions, or aneurysms. IMPRESSION: No significant intracranial arterial abnormalities are seen. Reviewed by: Stan Sims MD on 06/12/2021 3:51 PM [facility] Approved by: Stan Sims MD on 06/12/2021 3:51 PM [facility] Station ID: [id number]
--- NOTE | 2021-06-12 16:54 | MRI Report ---
PROCEDURE: Brain W/O INDICATIONS: dizzy TECHNIQUE: Noncontrast axial T1 spin echo, axial T2 fast spin echo, sagittal and axial FLAIR, coronal T2 fast sp in echo, axial gradient echo, axial diffusion and ADC through the brain. COMPARISON: Correlation is made with the prior head CT angiogram and neck CT angiogram, 06/12/2021. C orrelation is also made with the accompanying MR angiogram, 06/12/2021. FINDINGS: Image quality: Motion artifact is noted. CSF Spaces: Basal cisterns are patent. No extra-axial fluid collections. Ventricles are normal in size and shape. Brain: No intracranial masses or hemorrhage. Kennedy/white matter interface is normal. Brainstem appe ars normal. Diffusion-weighted images demonstrate no acute ischemic insult. No chronic ischemic ins ults. Normal intravascular flow voids are present. Age-appropriate brain parenchymal volume loss an d chronic small vessel ischemic change can be seen. Skull and face: Calvarium has normal marrow signal. Orbits appear normal. Sinuses: Sinuses and mastoids are clear. IMPRESSION: No findings of acute or subacute infarction are seen. Age-appropriate brain parenchymal volume loss and chronic small vessel ischemic change can be seen. Reviewed by: Stan Sims MD on 06/12/2021 3:53 PM [facility] Approved by: Stan Sims MD on 06/12/2021 3:53 PM [facility] Station ID: [id number]
[2021-06-12 18:09] VITALS: BP 159/90
== END 2021-06-12 18:09 | disposition home or self-care (01) ==
LOC: ED 07:38
DX: R42 Dizziness and giddiness (principal); Z87.891 Personal history of nicotine dependence; I11.9 Hypertensive heart disease without heart failure
CPT/HCPCS: 36415; 70496; 70498; 70544; 70551; 71045; 80048; 81003; 84484; 85025; 93005; 96374; 99284; A9270; Q9967; 81001; 87086

== ENCOUNTER 2021-06-20 19:00 | Outpatient (CLI) | payer MEDICARE, OTHER | END 2021-06-20 23:59 | disposition home or self-care (01) | LOC: LAB.S 19:00 | PROVIDERS: ATTEND Physician Assistant Medical | DX: R31.9 Hematuria, unspecified (principal) | CPT/HCPCS: 87086; 87181 ==

== ENCOUNTER 2021-07-03 10:30 | Outpatient (CLI) | payer MEDICARE, OTHER | END 2021-07-03 23:59 | disposition home or self-care (01) | LOC: LAB.WCP 10:30 | PROVIDERS: ATTEND Physician Assistant Medical | DX: N39.0 Urinary tract infection, site not specified (principal) | CPT/HCPCS: 87086; 87181 ==

== ENCOUNTER 2021-12-10 08:59 | Day surgery (SDC) | payer MEDICARE, OTHER ==
[2021-12-10] MEDS ORDERED: LACTATED RINGERS 1,000 ML IV ONE ×2 (10:00→11:06)
--- NOTE | 2021-12-10 10:31 | ANESTHESIA ---
Pre-Anesthesia VS, & Labs - Diagnosis screening - Procedure sleep apnea Vital Signs: Temp Pulse Resp BP Pulse Ox 37 C 70 18 145/72 H 99 12/10/21 09:10 12/10/21 09:10 12/10/21 09:10 12/10/21 09:10 12/10/21 09:10 Height: 5 ft 3.5 in Weight (kg): 113 kg Body Mass Index: 43.4 BMI Classification: Morbidly Obese - NPO >8 hours - Is Patient ?: No Home Medications and Allergies Albuterol Sulfate [Proair Hfa Inhaler] 1 - 2 puffs INH Q4H PRN 05/22/21 Fluticasone/Salmeterol [Advair 100-50 Diskus] 1 each IH DAILY 05/22/21 Montelukast Sodium 5 mg PO DAILY 05/22/21 lisinopriL [Zestril] 5 mg PO DAILY 05/22/21 Allergies/Adverse Reactions: Allergies Allergy/AdvReac Type Severity Reaction Status Date / Time oxycodone [From Percocet] AdvReac Emesis Verified 06/12/21 07:47 Anes History & Medical History - Anesthetic History Anesthesia Complications: reports: Post-Operative Nausea/Vomiting - Medical History Cardiovascular: reports: Hypertension Pulmonary: reports: Asthma, Sleep apnea, CPAP use Gastrointestinal: reports: Colon polyps Urinary: reports: None Neuro: reports: None Musculoskeletal: reports: Osteoarthritis Endocrine/Autoimmune: reports: None Blood Disorders: reports: None Skin: reports: None Smoking Status: Former smoker - Surgical History General: reports: Colonoscopy Gynecologic: reports: Dilation and currettage, Tubal ligation Orthopedic: reports: Hip replacement Exam General: Alert, Oriented x3 Dental: WNL Mouth Opening: Greater than 4 Fingerbreadths Mallampati classification: II Thyromental Distance: greater than 6 cm Respiratory: Lungs clear Cardiovascular: Regular rate Plan Anesthesia Type: Total IV Consent for Procedure(s) Verified and Reviewed: Yes Code Status: Attempt Resuscitation ASA classification: 3-Severe systemic disease Is this case an emergency?: No
[2021-12-10] MEDS ORDERED: PROPOFOL 500 MG/50 ML 500 MG/50 ML VIAL ONE (10:46)
[2021-12-10 11:32] VITALS: BP 132/70
--- NOTE | 2021-12-10 12:06 | ANESTHESIA POST OP EVALUATION ---
Anesthesia Post Eval - Post Anesthesia Eval Vitals: Last Vital Signs Temp 36.6 C 12/10/21 11:30 Pulse 74 12/10/21 11:30 Resp 16 12/10/21 11:30 BP 132/70 H 12/10/21 11:30 Pulse Ox 99 12/10/21 11:30 CV Function Including HR & BP: Stable Pain Control: Satisfactory Nausea & Vomiting: Negative Mental Status: Baseline Respiratory Status: Airway Patent Hydration Status: Satisfactory Anesthesia Complications: None
== END 2021-12-10 09:00 | disposition home or self-care (01) ==
LOC: SDS 08:59
PROVIDERS: ATTEND Surgery
PROC: 0DBK8ZZ Excision of Ascending Colon, Via Natural or Artificial Opening Endoscopic (ICD-10-PCS; principal; 2021-12-10 10:00)
DX: Z12.11 Encounter for screening for malignant neoplasm of colon (principal); D12.2 Benign neoplasm of ascending colon; K57.30 Diverticulosis of large intestine without perforation or abscess without bleeding; K64.8 Other hemorrhoids; K64.4 Residual hemorrhoidal skin tags; E66.01 Morbid (severe) obesity due to excess calories; Z68.41 Body mass index [BMI] 40.0-44.9, adult; J45.40 Moderate persistent asthma, uncomplicated; G47.33 Obstructive sleep apnea (adult) (pediatric)
CPT/HCPCS: 45380; J7120

== ENCOUNTER 2021-12-17 10:48 | Outpatient (CLI) | payer MEDICARE, OTHER ==
[2021-12-17 18:08] LABS: BASOPHILS % (AUTO) 0.5 %; EOSINOPHILS # (AUTO) 0.1 10^3/uL (0.0-0.7); EOSINOPHILS % (AUTO) 1.6 %; HCT - HEMATOCRIT 40.8 % (37.0-47.0); HGB - HEMOGLOBIN 13.4 g/dL (12.0-16.0); LYMPHOCYTES # (AUTO) 2.1 10^3/uL (1.5-3.5); LYMPHOCYTES % (AUTO) 38.1 %; MEAN CORPUSCULAR HEMOGLOBIN 30.8 pg (27.0-31.0); MEAN CORPUSCULAR HGB CONC 32.8 g/dL (32.0-36.0); MEAN CORPUSCULAR VOLUME 93.8 fL (81.0-99.0); MEAN PLATELET VOLUME 10.3 fL (7.9-10.8); MONOCYTES # (AUTO) 0.3 10^3/uL (0.0-1.0); NEUTROPHILS # (AUTO) 2.9 10^3/uL (1.5-6.6); NEUTROPHILS % (AUTO) 53.6 %; PLT - PLATELET COUNT 326 10^3/uL (130-450); RED BLOOD COUNT 4.35 10^6/uL (4.20-5.40); RED CELL DISTRIBUTION WIDTH 12.1 % (12.0-15.0); WHITE BLOOD COUNT 5.5 x10^3/uL (4.8-10.8)
[2021-12-17 18:22] LABS: ALBUMIN 3.8 g/dL (3.2-5.5); ALBUMIN/GLOBULIN RATIO 1.2 (1.0-2.2); ALKALINE PHOSPHATASE 71 IU/L (42-121); ALT ALANINE AMINOTRANSFERASE 80 IU/L (10-60); AST ASPARTATE AMINOTRANSFERASE 66 IU/L (10-42); BILIRUBIN,TOTAL 0.6 mg/dL (0.2-1.0); BUN - BLOOD UREA NITROGEN 16 mg/dL (6-20); CALCIUM 9.5 mg/dL (8.5-10.3); CARBON DIOXIDE - CO2 24 mmol/L (21-32); CHLORIDE 105 mmol/L (101-111); CHOL/HDL RATIO 1.9 (<4.4); CHOLESTEROL 144 mg/dL; CREATININE 0.8 mg/dL (0.4-1.0); GFR - MDRD 70 (>89); GLUCOSE 88 mg/dL (70-100); HDL CHOLESTEROL 74 mg/dL; POTASSIUM 4.3 mmol/L (3.5-5.0); SODIUM 138 mmol/L (135-145); TRIGLYCERIDES 36 mg/dL
== END 2021-12-17 10:49 | disposition home or self-care (01) ==
LOC: LAB.N 10:48
PROVIDERS: ATTEND Physician Assistant Medical
DX: I10 Essential (primary) hypertension (principal)
CPT/HCPCS: 36415; 80053; 80061; 83721; 85025

== ENCOUNTER 2022-02-11 07:00 | Outpatient (CLI) | payer MEDICARE, OTHER ==
--- NOTE | 2022-02-12 11:14 | XRAY Report ---
PROCEDURE: Chest 2 View X-Ray INDICATIONS: COUGH AND FEVER TECHNIQUE: 2 view(s) of the chest. COMPARISON: None. FINDINGS: Surgical changes and devices: None. Lungs and pleura: No pleural effusions or pneumothorax. Lungs are clear. Mediastinum: Mediastinal contours are normal. Mild cardiomegaly. Bones and chest wall: No suspicious bony abnormalities. Soft tissues appear unremarkable. IMPRESSION: No evidence acute pulmonary process. Reviewed by: Tanner Foster MD on 02/12/2022 11:13 AM PDT Approved by: Tanner Foster MD on 02/12/2022 11:13 AM PDT Station ID: [id number]
== END 2022-02-11 23:59 | disposition home or self-care (01) ==
LOC: DI.S 07:00
PROVIDERS: ATTEND Physician Assistant Medical
DX: R50.9 Fever, unspecified (principal); R05.9 Cough, unspecified; Z20.822 Contact with and (suspected) exposure to COVID-19
CPT/HCPCS: 71046; U0004

== ENCOUNTER 2022-06-12 09:51 | Outpatient (CLI) | payer MEDICARE, OTHER ==
[2022-06-12 10:10] LABS: BASOPHILS # (AUTO) 0.1 10^3/uL (0.0-0.1); BASOPHILS % (AUTO) 1.1 %; EOSINOPHILS # (AUTO) 0.1 10^3/uL (0.0-0.7); EOSINOPHILS % (AUTO) 1.7 %; HGB - HEMOGLOBIN 13.9 g/dL (12.0-16.0); LYMPHOCYTES # (AUTO) 2.1 10^3/uL (1.5-3.5); LYMPHOCYTES % (AUTO) 39.9 %; MEAN CORPUSCULAR HEMOGLOBIN 31.3 pg (27.0-31.0); MEAN CORPUSCULAR HGB CONC 32.3 g/dL (32.0-36.0); MEAN CORPUSCULAR VOLUME 96.8 fL (81.0-99.0); MEAN PLATELET VOLUME 9.5 fL (7.9-10.8); MONOCYTES # (AUTO) 0.4 10^3/uL (0.0-1.0); MONOCYTES % (AUTO) 6.7 %; NEUTROPHILS # (AUTO) 2.7 10^3/uL (1.5-6.6); NEUTROPHILS % (AUTO) 50.4 %; PLT - PLATELET COUNT 312 10^3/uL (130-450); RED BLOOD COUNT 4.44 10^6/uL (4.20-5.40); RED CELL DISTRIBUTION WIDTH 12.5 % (12.0-15.0); WHITE BLOOD COUNT 5.3 x10^3/uL (4.8-10.8)
[2022-06-12 10:26] LABS: ALBUMIN 4.4 g/dL (3.2-5.5); ALBUMIN/GLOBULIN RATIO 1.5 (1.0-2.2); ALKALINE PHOSPHATASE 76 IU/L (42-121); ALT ALANINE AMINOTRANSFERASE 57 IU/L (10-60); AST ASPARTATE AMINOTRANSFERASE 48 IU/L (10-42); BILIRUBIN,TOTAL 0.6 mg/dL (0.2-1.0); BUN - BLOOD UREA NITROGEN 15 mg/dL (6-20); CALCIUM 10.2 mg/dL (8.5-10.3); CARBON DIOXIDE - CO2 28 mmol/L (21-32); CHLORIDE 106 mmol/L (101-111); CHOLESTEROL 199 mg/dL; CREATININE 0.9 mg/dL (0.4-1.0); GFR - MDRD 61 (>89); GLUCOSE 108 mg/dL (70-100); HDL CHOLESTEROL 98 mg/dL; SODIUM 143 mmol/L (135-145); TOTAL PROTEIN 7.4 g/dL (6.7-8.2); TRIGLYCERIDES 31 mg/dL
== END 2022-06-12 09:52 | disposition home or self-care (01) ==
LOC: LAB 09:51
PROVIDERS: ATTEND Physician Assistant Medical
DX: I10 Essential (primary) hypertension (principal); E66.9 Obesity, unspecified
CPT/HCPCS: 36415; 80053; 80061; 83721; 85025

== ENCOUNTER 2022-06-20 10:25 | Outpatient (CLI) | payer MEDICARE, OTHER ==
[2022-06-20 11:07] VITALS: BP 110/80
--- NOTE | 2022-06-20 11:07 | SLEEP CARE CONSULTATION ---
Information from patient questionnaire entered by Raheel Cunningham. I have reviewed and concur with the information entered by Raheel Cunningham. This document represents the service I personally performed and the decisions made by me, Aileen Pineda ARNP. History of Present Illness Service Date and Time: 06/20/2022 1025 Previous diagnosis: Severe, Obstructive Sleep Apnea-Hypopnea Syndrome AHI: 57.4 Reason for follow up: annual (LAST SEEN 05/18) Equipment type: CPAP (DREAMSTATION) Equipment obtained from: Other ([facility]; getting supplies as needed) Mask style: Nasal Mask brand: Respironics (Dreamwear) Backup mask available: Yes (old mask) Last cushion change: monthly Prior sleep studies: Yes Year and Where: 2017 - [facility] HPI additional information: BRIT LYNN was diagnosed to have severe, AHI 57.4, obstructive sleep apnea-hypopnea syndrome and returned today for CPAP therapy annual follow-up. Sleep Study - Results Prior sleep studies: Yes Year and Where: [facility] CPAP Compliance Data Compliance data discussion: Patient brought in her modem instead of her SD card. We were unable to get her download offline. She states she does not go to sleep without her CPAP. She wears it every night. She states she averages 8 hours a night. She also has a portable CPAP machine too. Subjective Patient concerns: denies: aerophagia, mask discomfort, air blowing in eyes, mask leak noise, condensation in mask/hose, nasal congestion, dry mouth, nose, throat, epistaxis Observed to snore while using device: No Current pressure setting perceived as: comfortable On therapy, patient: reports: sleeping better, awakening more refreshed, being more awake and alert during the day, more rested overall. denies: drowsiness while driving Current [place] Sleepiness Scale score: 3 (06/20/22) Allergies and Home Medications Drug allergies reviewed: Yes (percocet) Home medication list reviewed: Yes (no changes) Allergy and home medication list: Allergies oxycodone [From Percocet] Adverse Reaction (Verified 06/12/21 07:47) Emesis Review of Systems Review of systems same as previous: Yes (had pneumonia, not covid; D&C April 2021) Physical Exam Vital signs obtained and entered by: N.BYNG, MA Blood Pressure: 110/80 (LEFT ARM ) Cuff size: regular Heart Rate: 70 O2 Saturation: 97 Height: 5 ft 3.5 in Weight: 245 lb Body Mass Index: 42.7 BMI Classification: Morbidly Obese Impression and Plan 1. Obstructive Sleep Apnea-Hypopnea Syndrome, severe, with unknown treatment compliance and unknown apnea control. On CPAP therapy, the patient has better sleep quality and is more rested overall. Patient brought in her modem instead of her SD card. We were unable to access her compliance information online. Patient states she will bring in the SD card on Thursday. With the compliance/therapy information from her SD care, I will be able to update her supplies. 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 Patient's apnea severity and rationale for treatment to reduce apnea, improve sleep quality and reduce cardiovascular and cerebrovascular events was reviewed. 2. Obesity, unspecified. Currently patients BMI is 42.7. Obesity increases the risk of apnea, CPAP pressure requirements and overall health risks especially cardiovascular and diabetes. Thus patient is advised to lose weight. * Continue auto CPAP pressure at 8-13 cmH2O * Patient to bring in SD card for us to download her compliance data * Update supplies once we get her compliance data * Notify me if snoring with mask or feeling that the pressure is too much or too little * Attempt to lose weight * Call this office if any problems using CPAP * Return for follow up in 1 year, or sooner if concerns arise Counseling Topics: Spare mask, Weight loss health impact Visit Type: In Office Time Spent with Patient (minutes): 23 Provider Statement: I spent 100% of the Face to Face Visit with the patient with greater than 50% spent counseling the patient and coordination of care.
== END 2022-06-20 10:26 | disposition home or self-care (01) ==
LOC: SC 10:25
PROVIDERS: ATTEND Nurse Practitioner Family
DX: G47.33 Obstructive sleep apnea (adult) (pediatric) (principal); E66.01 Morbid (severe) obesity due to excess calories; Z68.41 Body mass index [BMI] 40.0-44.9, adult
CPT/HCPCS: 99213; G0463; 99212

== ENCOUNTER 2022-10-10 09:40 | Outpatient (CLI) | payer MEDICARE, OTHER ==
--- NOTE | 2022-10-10 17:09 | XRAY Report ---
PROCEDURE: Chest 2 View X-Ray INDICATIONS: PNEUMONIA, UNSPECIFIED ORGANISM TECHNIQUE: 2 views of the chest were acquired. COMPARISON: 02/11/2022 FINDINGS: Surgical changes and devices: None. Lungs and pleura: No pleural effusions or pneumothorax. Lungs are clear. Mediastinum: Mediastinal contours are normal. Heart size is mildly enlarged. Bones and chest wall: No suspicious bony abnormalities. Soft tissues appear unremarkable. IMPRESSION: No acute cardiopulmonary pathology. Reviewed by: Jim Valencia MD on 10/10/2022 5:08 PM [facility] Approved by: Jim Valencia MD on 10/10/2022 5:08 PM [facility] Station ID: [id number]
== END 2022-10-10 09:41 | disposition home or self-care (01) ==
LOC: DI 09:40
PROVIDERS: ATTEND Physician Assistant Medical
DX: J18.9 Pneumonia, unspecified organism (principal)

== ENCOUNTER 2022-10-20 12:57 | Outpatient (CLI) | payer MEDICARE, OTHER ==
--- NOTE | 2022-10-21 15:36 | Mammography Report ---
BILATERAL DIGITAL SCREENING MAMMOGRAM 3D/2D: 10/20/2022 CLINICAL: Routine screening. Comparison is made to exams dated: 07/01/2011 mammogram, 02/02/2009 mammogram, and 09/13/2007 mammogram - [facility]. There are scattered areas of fibroglandular density in both breasts (category b / 25%-50% glandular t issue). There is a 0.9 cm oval focal asymmetry in the left breast at 5 o'clock middle depth. This is more pr ominent and increased in size. No other significant masses, calcifications, or other findings are seen in either breast. IMPRESSION: INCOMPLETE: NEEDS ADDITIONAL IMAGING EVALUATION The 0.9 cm oval focal asymmetry in the left breast is indeterminate. Additional views with possible ultrasound are recommended. Based on the Tyrer Cuzick model (a risk assessment model) the patients lifetime risk is 2.9% and her 10 year risk is 0.0%. According to the ACR, ACS, and NCCN guidelines, an annual breast MRI exam devika g with mammogram is recommended if the patients lifetime risk is 20% or greater. This exam was interpreted at Station ID: [id number]. NOTE: For mammograms, a report in lay terms will be sent to the patient. Approximately 15% of breast malignancies will not be visualized mammographically. In the management of a palpable breast mass, a negative mammogram must not discourage biopsy of a clinically suspicious lesion. Electronically Signed By: Bib yang/gabrielle:10/20/2022 17:32:01 ACR BI-RADS Category 0: Incomplete 3340F PARENCHYMAL PATTERN: (A) - The breast(s) demonstrate(s) scattered fibroglandular densities. BI-RADS CATEGORY: (0) - 0 Mammo and [place] [id number] Immediate follow-up LATERALITY: (L)
== END 2022-10-20 12:58 | disposition home or self-care (01) ==
LOC: DI 12:57
DX: Z12.31 Encounter for screening mammogram for malignant neoplasm of breast (principal); R92.8 Other abnormal and inconclusive findings on diagnostic imaging of breast

== ENCOUNTER 2022-11-13 09:14 | Outpatient (CLI) | payer MEDICARE, OTHER ==
--- NOTE | 2022-11-14 15:28 | Ultrasound Report ---
LIMITED ULTRASOUND OF LEFT BREAST: 11/13/2022 CLINICAL: Patient returns today to evaluate a focal asymmetry in the left breast. Comparison is made to exams dated: 11/13/2022 mammogram, 10/20/2022 mammogram, and 07/01/2011 mammogram - [facility]. Color flow and real-time ultrasound of the left breast 5 o'clock region were performed. Kennedy scale images of the real-time examination were reviewed. There is a benign 0.8 cm x 0.5 cm x 0.4 cm oval lymph node with a circumscribed margin in the left br east at 5 o'clock middle depth 5 cm from the nipple. This oval lymph node is hypoechoic with fatty h ilum. This correlates with mammography findings. IMPRESSION: BENIGN There is no sonographic evidence of malignancy. The 0.8 cm x 0.5 cm x 0.4 cm oval lymph node in the left breast is benign. Return to annual mammogram screening schedule is recommended. This exam was interpreted at Station ID: [id number]. Electronically Signed By: Andi reid/gabrielle:11/13/2022 12:40:15 Ultrasound BI-RADS: 2 Benign BI-RADS CATEGORY: (2) - 2 Mammogram [id number] return to screening LATERALITY: (B)
--- NOTE | 2022-11-14 15:28 | Mammography Report ---
UNILATERAL LEFT DIGITAL DIAGNOSTIC MAMMOGRAM 3D/2D: 11/13/2022 CLINICAL: Patient returns today to evaluate a focal asymmetry in the left breast. Comparison is made to exams dated: 10/20/2022 mammogram and 07/01/2011 mammogram - [facility]. There are scattered areas of fibroglandular density in the left breast (category b / 25%-50% glandula r tissue). There is a 0.9 cm oval focal asymmetry with a circumscribed margin in the left breast at 5 o'clock mi ddle depth. This is seen in additional views. This is more prominent. No other significant masses or calcifications are seen in the breast. IMPRESSION: INCOMPLETE: NEEDS ADDITIONAL IMAGING EVALUATION The 0.9 cm oval focal asymmetry in the left breast resembles a lymph node and is indeterminate. An u ltrasound is recommended. Based on the Tyrer Cuzick model (a risk assessment model) the patients lifetime risk is 2.9% and her 10 year risk is 0.0%. According to the ACR, ACS, and NCCN guidelines, an annual breast MRI exam devika g with mammogram is recommended if the patients lifetime risk is 20% or greater. This exam was interpreted at Station ID: [id number]. NOTE: For mammograms, a report in lay terms will be sent to the patient. Approximately 15% of breast malignancies will not be visualized mammographically. In the management of a palpable breast mass, a negative mammogram must not discourage biopsy of a clinically suspicious lesion. Electronically Signed By: Andi Bowman M.D. ar/penrad:11/13/2022 12:38:42 ACR BI-RADS Category 0: Incomplete 3340F PARENCHYMAL PATTERN: (A) - The breast(s) demonstrate(s) scattered fibroglandular densities. BI-RADS CATEGORY: (0) - 0 Ultrasound [id number] Immediate follow-up LATERALITY: (L)
== END 2022-11-13 09:15 | disposition home or self-care (01) ==
LOC: DI 09:14
PROVIDERS: ATTEND Family Medicine
DX: R92.8 Other abnormal and inconclusive findings on diagnostic imaging of breast (principal)

== ENCOUNTER 2022-12-04 09:26 | Outpatient (CLI) | payer MEDICARE, OTHER ==
[2022-12-04 10:01] LABS: ALBUMIN 3.9 g/dL (3.2-5.5); ALBUMIN/GLOBULIN RATIO 1.3 (1.0-2.2); ALKALINE PHOSPHATASE 80 IU/L (42-121); ALT ALANINE AMINOTRANSFERASE 53 IU/L (10-60); AST ASPARTATE AMINOTRANSFERASE 45 IU/L (10-42); BILIRUBIN,TOTAL 0.5 mg/dL (0.2-1.0); BUN - BLOOD UREA NITROGEN 19 mg/dL (6-20); CALCIUM 9.8 mg/dL (8.5-10.3); CARBON DIOXIDE - CO2 27 mmol/L (21-32); CHLORIDE 107 mmol/L (101-111); CHOL/HDL RATIO 1.8 (<4.4); CHOLESTEROL 187 mg/dL; CREATININE 0.9 mg/dL (0.4-1.0); GFR - MDRD 61 (>89); GLUCOSE 104 mg/dL (70-100); HDL CHOLESTEROL 102 mg/dL; POTASSIUM 4.4 mmol/L (3.5-5.0); SODIUM 141 mmol/L (135-145); TOTAL PROTEIN 6.9 g/dL (6.7-8.2); TRIGLYCERIDES 27 mg/dL
== END 2022-12-04 09:27 | disposition home or self-care (01) ==
LOC: LAB 09:26
PROVIDERS: ATTEND Physician Assistant Medical
DX: I10 Essential (primary) hypertension (principal)
CPT/HCPCS: 36415; 80053; 80061; 83721

== ENCOUNTER 2023-06-11 09:34 | Outpatient (CLI) | payer MEDICARE, OTHER ==
[2023-06-11 10:07] LABS: ALBUMIN 4.3 g/dL (3.2-5.5); ALBUMIN/GLOBULIN RATIO 1.7 (1.0-2.2); BILIRUBIN,TOTAL 0.6 mg/dL (0.2-1.0); CALCIUM 10.1 mg/dL (8.5-10.3); CREATININE 0.9 mg/dL (0.6-1.3); TOTAL PROTEIN 6.9 g/dL (6.4-8.9)
== END 2023-06-11 09:35 | disposition home or self-care (01) ==
LOC: LAB 09:34
PROVIDERS: ATTEND Physician Assistant Medical
DX: K76.0 Fatty (change of) liver, not elsewhere classified (principal)
CPT/HCPCS: 36415; 80053

== ENCOUNTER 2024-02-09 09:33 | Outpatient (CLI) | payer MEDICARE, OTHER ==
[2024-02-09 09:43] LABS: BASOPHILS # (AUTO) 0.1 10^3/uL (0.0-0.1); BASOPHILS % (AUTO) 0.9 %; EOSINOPHILS # (AUTO) 0.1 10^3/uL (0.0-0.7); EOSINOPHILS % (AUTO) 1.9 %; HCT - HEMATOCRIT 40.7 % (37.0-47.0); HGB - HEMOGLOBIN 12.8 g/dL (12.0-16.0); LYMPHOCYTES # (AUTO) 2.3 10^3/uL (1.5-3.5); MEAN CORPUSCULAR HEMOGLOBIN 30.9 pg (27.0-31.0); MEAN CORPUSCULAR HGB CONC 31.4 g/dL (32.0-36.0); MEAN CORPUSCULAR VOLUME 98.3 fL (81.0-99.0); MEAN PLATELET VOLUME 9.4 fL (7.9-10.8); MONOCYTES # (AUTO) 0.4 10^3/uL (0.0-1.0); MONOCYTES % (AUTO) 6.7 %; NEUTROPHILS # (AUTO) 2.9 10^3/uL (1.5-6.6); NEUTROPHILS % (AUTO) 50.3 %; PLT - PLATELET COUNT 298 10^3/uL (130-450); RED BLOOD COUNT 4.14 10^6/uL (4.20-5.40); RED CELL DISTRIBUTION WIDTH 12.2 % (12.0-15.0); WHITE BLOOD COUNT 5.7 x10^3/uL (4.8-10.8)
[2024-02-09 10:01] LABS: ALBUMIN 4.1 g/dL (3.2-5.5); ALBUMIN/GLOBULIN RATIO 1.5 (1.0-2.2); ALKALINE PHOSPHATASE 77 IU/L (42-121); ALT ALANINE AMINOTRANSFERASE 49 IU/L (10-60); AST ASPARTATE AMINOTRANSFERASE 42 IU/L (10-42); BILIRUBIN,TOTAL 0.6 mg/dL (0.2-1.0); BUN - BLOOD UREA NITROGEN 17 mg/dL (6-20); CALCIUM 9.9 mg/dL (8.5-10.3); CARBON DIOXIDE - CO2 28 mmol/L (21-32); CHLORIDE 106 mmol/L (101-111); CHOL/HDL RATIO 1.9 (<4.4); CHOLESTEROL 164 mg/dL; CREATININE 0.9 mg/dL (0.6-1.3); GFR - MDRD 61 (>89); GLUCOSE 101 mg/dL (74-104); HDL CHOLESTEROL 85 mg/dL; LDL CHOLESTEROL,CALCULATED 70 mg/dL; LDL/HDL RATIO 0.8 (<4.4); POTASSIUM 4.4 mmol/L (3.5-4.5); SODIUM 139 mmol/L (135-145); TOTAL PROTEIN 6.9 g/dL (6.4-8.9); TRIGLYCERIDES 45 mg/dL (48-352); VLDL CHOLESTEROL 9 mg/dL
== END 2024-02-09 09:34 | disposition home or self-care (01) ==
LOC: LAB 09:33
PROVIDERS: ATTEND Physician Assistant Medical
DX: I10 Essential (primary) hypertension (principal)
CPT/HCPCS: 36415; 80053; 80061; 83721; 85025

== ENCOUNTER 2024-03-29 14:20 | Outpatient (CLI) | payer MEDICARE, OTHER | END 2024-03-29 14:21 | disposition home or self-care (01) | LOC: LAB.S 14:20 | PROVIDERS: ATTEND Physician Assistant | DX: N39.8 Other specified disorders of urinary system (principal) | CPT/HCPCS: 36415; 80053; 85025 ==

== ENCOUNTER 2024-03-29 17:58 | Outpatient (CLI) | payer MEDICARE, OTHER ==
[2024-03-29 18:14] LABS: BASOPHILS % (AUTO) 0.6 %; EOSINOPHILS # (AUTO) 0.1 10^3/uL (0.0-0.7); EOSINOPHILS % (AUTO) 1.8 %; HCT - HEMATOCRIT 41.3 % (37.0-47.0); HGB - HEMOGLOBIN 12.9 g/dL (12.0-16.0); LYMPHOCYTES # (AUTO) 1.9 10^3/uL (1.5-3.5); LYMPHOCYTES % (AUTO) 29.6 %; MEAN CORPUSCULAR HEMOGLOBIN 30.7 pg (27.0-31.0); MEAN CORPUSCULAR HGB CONC 31.2 g/dL (32.0-36.0); MEAN CORPUSCULAR VOLUME 98.3 fL (81.0-99.0); MEAN PLATELET VOLUME 9.6 fL (7.9-10.8); MONOCYTES # (AUTO) 0.4 10^3/uL (0.0-1.0); MONOCYTES % (AUTO) 5.5 %; NEUTROPHILS % (AUTO) 62.2 %; PLT - PLATELET COUNT 298 10^3/uL (130-450); RED CELL DISTRIBUTION WIDTH 12.8 % (12.0-15.0); WHITE BLOOD COUNT 6.5 x10^3/uL (4.8-10.8)
[2024-03-29 18:32] LABS: ALBUMIN 3.9 g/dL (3.2-5.5); ALBUMIN/GLOBULIN RATIO 1.6 (1.0-2.2); BILIRUBIN,TOTAL 0.6 mg/dL (0.2-1.0); CALCIUM 9.8 mg/dL (8.5-10.3); CREATININE 1.1 mg/dL (0.6-1.3); POTASSIUM 4.1 mmol/L (3.5-4.5); TOTAL PROTEIN 6.3 g/dL (6.4-8.9)
== END 2024-03-29 17:59 | disposition home or self-care (01) ==
LOC: LAB 17:58
PROVIDERS: ATTEND Physician Assistant
DX: N39.8 Other specified disorders of urinary system (principal)
CPT/HCPCS: 36415; 80053; 85025

== ENCOUNTER 2024-06-15 09:42 | Outpatient (CLI) | payer MEDICARE, OTHER ==
--- NOTE | 2024-06-15 10:14 | Sleep Patient Instructions ---
Sleep Center Visit Summary - Patient Visit Information Reason for Visit: Annual Follow up - Patient Instructions Additional Instructions: You will continue with CPAP therapy with pressure set at 8-13 cmH2O. A supply prescription will be updated with your DME supplier. We encourage you to continue to try to lose weight. Please follow up with the sleep care office in 1 year. - Clinic Information Contact: [facility] [address] [place] [address] [email or web address] T: [phone]
--- NOTE | 2024-06-15 10:16 | SLEEP CARE CONSULTATION ---
Information from patient questionnaire entered by Zoie Montejo. I have reviewed and concur with the information entered by Zoie Montejo. This document represents the service I personally performed and the decisions made by me, Aileen Pineda ARNP. History of Present Illness Service Date and Time: 06/15/2024 0942 Previous diagnosis: Severe, Obstructive Sleep Apnea-Hypopnea Syndrome AHI: 57.4 Reason for follow up: annual (LAST SEEN 05/2023) Equipment type: CPAP (DREAMSTATION 2, SD CARD NEEDED) Equipment obtained from: Other ([facility]; getting supplies as needed) Mask style: Nasal Mask brand: Respironics (Dreamwear) Backup mask available: Yes (old mask) Last cushion change: last week Prior sleep studies: Yes Year and Where: [facility] HPI additional information: BRIT LYNN was diagnosed to have severe, AHI 57.4, obstructive sleep apnea-hypopnea syndrome and returned today for CPAP therapy annual follow-up. Sleep Study - Results Prior sleep studies: Yes Year and Where: [address] [place] [address] CPAP Compliance Data - Data Reviewed with Patient Average duration of nightly device use: 8 HRS 41 MINS 2 SECS Compliance rate %: 91.1 (12/21/23-06/17/24; 164/180 days used) Current pressure setting (cmH2O): 8-13 Average residual AHI: 2.9 Central apnea: 0.2 Obstructive apnea: 1.1 Hypopnea: 1.6 Average large leak: 18 mins Compliance data discussion: She has a travel CPAP for when she is traveling. Subjective Missed days of use due to: reports: travel Patient concerns: denies: aerophagia, mask discomfort, air blowing in eyes, mask leak noise, condensation in mask/hose, nasal congestion, dry mouth, nose, throat, epistaxis Observed to snore while using device: No Current pressure setting perceived as: comfortable On therapy, patient: reports: sleeping better, awakening more refreshed, being more awake and alert during the day, more rested overall. denies: drowsiness while driving Initial [place] Sleepiness Scale score: 2 (2020) Current [place] Sleepiness Scale score: 2 (06/15/24) Allergies and Home Medications Known drug allergies: Yes (as listed) Drug allergies reviewed: Yes Home medication list reviewed: Yes (no changes) Allergy and home medication list: Allergies oxycodone [From Percocet] Adverse Reaction (Verified 06/15/24 09:49) Emesis Review of Systems Review of systems same as previous: Yes (NO CHANGE) Physical Exam Vital signs obtained and entered by: ZOIE Krishnamurthy MA Blood Pressure: 146/80 (LEFT ARM) Cuff size: long Heart Rate: 77 O2 Saturation: 98 Height: 5 ft 3.5 in Weight: 251 lb Body Mass Index: 43.7 BMI Classification: Morbidly Obese Impression and Plan 1. Obstructive Sleep Apnea-Hypopnea Syndrome, severe, with good treatment compliance and good apnea control. On CPAP therapy, the patient has better sleep quality and is more rested overall. She has significant improvement of her sleep apnea and is comfortable with CPAP therapy. Patient denies problems with oral dryness, nasal congestion, epistaxis, skin irritation or aerophagia. 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 Patient's apnea severity and rationale for treatment to reduce apnea, improve sleep quality and reduce cardiovascular and cerebrovascular events was reviewed. 2. Obesity, unspecified. Currently patients BMI is 43.7. Obesity increases the risk of apnea, CPAP pressure requirements and overall health risks especially cardiovascular and diabetes. Thus patient is advised to lose weight. * Continue auto CPAP pressure at 8-13 cmH2O * Update supply prescription * Notify me if snoring with mask or feeling that the pressure is too much or too little * Attempt to lose weight * Call this office if any problems using CPAP * Return for follow up in 12 months, or sooner if concerns arise Counseling Topics: Spare mask, Weight loss health impact Prescriptions: Device supplies Follow up with Sleep Care in: 1 year Visit Type: In Office Time Spent with Patient (minutes): 20 Provider Statement: I spent 100% of the Face to Face Visit with the patient with greater than 50% spent counseling the patient and coordination of care.
[2024-06-15 10:20] VITALS: BP 146/80; O2SAT 98
== END 2024-06-15 09:43 | disposition home or self-care (01) ==
LOC: SC 09:42
PROVIDERS: ATTEND Nurse Practitioner Family
DX: G47.33 Obstructive sleep apnea (adult) (pediatric) (principal); E66.01 Morbid (severe) obesity due to excess calories; Z68.41 Body mass index [BMI] 40.0-44.9, adult
CPT/HCPCS: 99213; G0463; 99212